=== PATIENT | female | born 1995 | race Caucasian/White ===

== ENCOUNTER 2022-02-26 15:28 | Emergency (ER) | payer SELFPAY ==
[2022-02-26 15:44] VITALS: BP 98/63; PULSE 73; RESP 19; TEMP 98.3; BMI 19.2
[2022-02-26] MEDS ORDERED: IBUPROFEN 600 MG TABLET (FP) PO ONE ×2 (16:48→16:51)
[2022-02-26] MEDS ORDERED: METHOCARBAMOL 500 MG TABLET PO ONE (16:48)
[2022-02-26] MEDS ORDERED: METHOCARBAMOL 500 MG TABLET ONE (16:51)
== END 2022-02-26 17:17 | disposition home or self-care (01) ==
LOC: JER 15:28 → JERFT 15:28
DX: M54.12 Radiculopathy, cervical region (principal)
CPT/HCPCS: 71046-TC-FY; 93005; 93010; 99283-25

== ENCOUNTER 2023-09-20 00:11 | Emergency (ER) | payer OTHER ==
[2023-09-20 00:29] VITALS: BP 102/61; PULSE 75; RESP 16; TEMP 98.6; BMI 21.3
[2023-09-20] MEDS ORDERED: ACETAMINOPHEN 325 MG TABLET (FP) ONE (01:35)
[2023-09-20] MEDS: ACETAMINOPHEN 500 MG TABLET (FP) PO ONE (01:39)
== END 2023-09-20 02:33 | disposition home or self-care (01) ==
LOC: JER 00:11
DX: S92.251A Displaced fracture of navicular [scaphoid] of right foot, initial encounter for closed fracture (principal); X50.1XXA Overexertion from prolonged static or awkward postures, initial encounter
CPT/HCPCS: 73610-TC-RT-FY; 73630-TC-RT-FY; 99283-25

== ENCOUNTER 2023-09-24 16:41 | Emergency (ER) | payer OTHER ==
[2023-09-24 16:53] VITALS: BP 103/62; PULSE 86; RESP 20; TEMP 98.7; BMI 20.7
[2023-09-24] MEDS ORDERED: KETOROLAC TROMETHAMINE 30 MG/1 ML VIAL ONE (18:18)
[2023-09-24] MEDS: KETOROLAC TROMETHAMINE 30 MG/1 ML VIAL IM ONE (18:27)
== END 2023-09-24 18:38 | disposition home or self-care (01) ==
LOC: JERFT 16:41
PROC: 3E0233Z Introduction of Anti-inflammatory into Muscle, Percutaneous Approach (ICD-10-PCS; principal; 2023-09-24)
DX: M79.671 Pain in right foot (principal); S92.251D Displaced fracture of navicular [scaphoid] of right foot, subsequent encounter for fracture with routine healing; M25.474 Effusion, right foot
CPT/HCPCS: 99284-25